=== PATIENT | male | born 1980 | race Caucasian/White ===

== ENCOUNTER 2017-02-20 12:09 | Emergency (ER) | payer OTHER | END 2017-02-20 13:14 | disposition home or self-care (01) | LOC: ER1 12:09 | DX: S90.812A Abrasion, left foot, initial encounter (principal); S90.811A Abrasion, right foot, initial encounter; S60.312A Abrasion of left thumb, initial encounter; X58.XXXA Exposure to other specified factors, initial encounter; F17.210 Nicotine dependence, cigarettes, uncomplicated; Z23 Encounter for immunization | CPT/HCPCS: 90471; 90715; 99283 ==